=== PATIENT | male | born 1960 | race Caucasian/White ===

== ENCOUNTER 2018-03-10 05:28 | Observation (INO) | payer BC ==
[2018-03-10] MEDS: CEFAZOLIN 2 GM/50 ML (PMX) 50 ML IVPB (06:47)
[2018-03-10] MEDS ORDERED: THROMBIN 5000 UNIT VIAL (06:47)
[2018-03-10] MEDS: LACTATED RINGER'S 1,000 ML IV* (06:47)
[2018-03-10] MEDS ORDERED: GELATIN SIZE 100 SPONGE (06:47)
[2018-03-10] MEDS ORDERED: PROPOFOL 20 ML (06:55)
[2018-03-10] MEDS ORDERED: ROCURONIUM 50 MG INJ (06:55)
[2018-03-10] MEDS ORDERED: FENTAnyl 50 MCG/ML VIAL (06:55)
[2018-03-10] MEDS ORDERED: MIDAZOLAM 1 MG/ML 2 ML INJ (06:56)
[2018-03-10] MEDS ORDERED: METOCLOPRAMIDE 10 MG INJ (06:56)
[2018-03-10] MEDS ORDERED: DESFLURANE 15 MIN (07:00)
[2018-03-10] MEDS ORDERED: CEFAZOLIN 1 GM INJ (07:00)
[2018-03-10] MEDS ORDERED: PROPOFOL 200 MG INJ (07:00)
[2018-03-10] MEDS ORDERED: ONDANSETRON 4 MG INJ (07:29)
[2018-03-10] MEDS ORDERED: HYDROmorphONE 2 MG/ML SYG (07:29)
[2018-03-10] MEDS ORDERED: EPHEDrine SULFATE 50 MG/5 ML SYG (07:30)
[2018-03-10] MEDS: BUPIVACAINE 0.25% (MPF) 30 ML INJ (07:36)
[2018-03-10] MEDS ORDERED: DIPHENHYDRAMINE 50 MG INJ IV (08:00)
[2018-03-10] MEDS ORDERED: MEPERIDINE 25 MG INJ IV (08:00)
[2018-03-10] MEDS: POLYMYXIN/BACITRACIN 1L IRRIG (08:00)
[2018-03-10] MEDS ORDERED: LABETALOL HCL 20MG INJ IV (08:00)
[2018-03-10] MEDS ORDERED: HYDROmorphONE 1 MG/5 ML IV SYRINGE IV ×2 (08:00)
[2018-03-10] MEDS ORDERED: hydrALAzine 20 MG INJ IV (08:00)
[2018-03-10] MEDS: DEXTROSE 5%-0.45% NACL 1,000 ML IV ×3 (09:52→21:35)
[2018-03-10] MEDS ORDERED: DIPHENHYDRAMINE 50 MG CAP PO (10:00)
[2018-03-10] MEDS ORDERED: NACL 0.9% 3 ML SYG IV (10:00)
[2018-03-10] MEDS ORDERED: ONDANSETRON 4 MG INJ IV (10:00)
[2018-03-10] MEDS ORDERED: ZOLPIDEM 5 MG TAB PO (10:00)
[2018-03-10] MEDS ORDERED: DIAZEPAM 5 MG TAB PO (10:00)
[2018-03-10] MEDS ORDERED: PROCHLORPERAZINE 10 MG TAB PO (10:00)
[2018-03-10] MEDS ORDERED: DIAZEPAM 5 MG/ML SYG IM (10:00)
[2018-03-10] MEDS ORDERED: NALOXONE (0.4 MG/ML) INJ IV (10:00)
[2018-03-10] MEDS ORDERED: HYDROCODONE/APAP (5/325) TAB PO (10:00)
[2018-03-10] MEDS ORDERED: TRIMETHOBENZAMIDE 100 MG/ML VIAL IM (10:00)
[2018-03-10] MEDS ORDERED: AL HYDROX/MG HYDROX/SIMETH 30 ML CUP PO (10:00)
[2018-03-10] MEDS: ONDANSETRON 4 MG INJ IV (10:15)
[2018-03-10] MEDS: HYDROmorphONE 0.2 MG/ML PCA IV ×2 (10:15→20:35)
[2018-03-10] MEDS ORDERED: CEFAZOLIN 1 GM/50 ML (PMX) 50 ML IVPB (10:43)
[2018-03-10] MEDS: HYDROmorphONE 1 MG/5 ML IV SYRINGE IV (10:45)
[2018-03-10] MEDS: CEFAZOLIN 1 GM/50 ML (PMX) 50 ML IVPB ×2 (11:10→17:45)
[2018-03-10] MEDS: CEPASTAT LOZENGE MT (17:57)
[2018-03-10] MEDS: RANITIDINE 150 MG TAB PO (21:32)
[2018-03-10] MEDS: ATORVASTATIN 40 MG TAB PO (21:32)
[2018-03-11] MEDS: CEFAZOLIN 1 GM/50 ML (PMX) 50 ML IVPB ×2 (00:09→05:50)
[2018-03-11] MEDS: ACETAMINOPHEN 325 MG TAB PO (04:20)
[2018-03-11 05:07] LABS: HEMATOCRIT 36.4 % (42.0-52.0); HEMOGLOBIN 12.8 g/dl (14.0-18.0)
[2018-03-11 05:28] LABS: ANION GAP 8 (5-13); BLOOD UREA NITROGEN 13 mg/dl (7-20); CALCIUM 8.5 mg/dl (8.4-10.2); CARBON DIOXIDE 30 mmol/L (21-31); CHLORIDE 92 mmol/L (97-110); CREATININE 0.62 mg/dl (0.61-1.24); Estimated GFR > 60 mL/min (>60); GLUCOSE 138 mg/dl (70-220); POTASSIUM 3.1 mmol/L (3.5-5.1); SODIUM 130 mmol/L (135-144)
[2018-03-11] MEDS: PANTOPRAZOLE (EC) 40 MG TAB PO (05:50)
[2018-03-11] MEDS: DEXTROSE 5%-0.45% NACL 1,000 ML IV (05:52)
[2018-03-11] MEDS: LACTATED RINGER'S 1,000 ML IV* (06:00)
[2018-03-11] MEDS ORDERED: BETHANECHOL 25 MG TAB PO (08:00)
[2018-03-11] MEDS: MULTIVITAMINS THERAPEUTIC TAB PO (08:57)
[2018-03-11] MEDS: AMLODIPINE 10 MG TAB PO (08:58)
[2018-03-11] MEDS: EZETIMIBE 10 MG TAB PO (08:58)
[2018-03-11] MEDS: ASCORBIC ACID 500 MG TAB PO (08:58)
[2018-03-11] MEDS: DOCUSATE SODIUM 100 MG CAP PO (08:58)
[2018-03-11] MEDS: BETHANECHOL 25 MG TAB PO (08:59)
[2018-03-11] MEDS: FERROUS SULFATE (EC) 325 MG TAB PO ×2 (08:59→13:01)
[2018-03-11] MEDS: RANITIDINE 150 MG TAB PO (08:59)
[2018-03-11] MEDS: LISINOPRIL 20 MG TAB PO (08:59)
[2018-03-11] MEDS: HYDROCODONE/APAP (5/325) TAB PO ×2 (09:00→13:01)
[2018-03-11] MEDS: NEBIVOLOL 5 MG TAB PO (09:00)
[2018-03-11 09:38] LABS: ADD UMIC YES; UR ASCORBIC ACID NEGATIVE (NEGATIVE); UR BILIRUBIN (Dip) NEGATIVE (NEGATIVE); UR BLOOD (Dip) 1+ mg/dL (NEGATIVE); UR CLARITY CLEAR (CLEAR); UR COLOR COLORLESS (YELLOW); UR GLUCOSE (Dip) NEGATIVE (NEGATIVE); UR KETONES (Dip) NEGATIVE (NEGATIVE); UR LEUKOCYTE ESTERASE (Dip) NEGATIVE Leu/ul (NEGATIVE); UR NITRITE (Dip) NEGATIVE (NEGATIVE); UR RBC 0 /HPF (0-5); UR SPECIFIC GRAVITY (Dip) 1.001 (1.003-1.030); UR TOTAL PROTEIN (Dip) NEGATIVE (NEGATIVE); UR UROBILINOGEN (Dip) NEGATIVE (NEGATIVE); UR WBC 0 /HPF (0-5)
[2018-03-11] MEDS: POTASSIUM CHLORIDE (SR) 20 MEQ TAB PO (10:55)
== END 2018-03-11 14:43 | disposition home or self-care (01) ==
LOC: REC 05:28 → MS1 11:17
DX: M51.26 Other intervertebral disc displacement, lumbar region (principal); M48.061 Spinal stenosis, lumbar region without neurogenic claudication; I10 Essential (primary) hypertension; E78.00 Pure hypercholesterolemia, unspecified
CPT/HCPCS: 63030; 72020; 80048; 81001; 85014; 85018; 86850; 86900; 86901; 86920; 87086; 88304; 88311; 97116; 97161; 97530